=== PATIENT | female | born 1975 | race Caucasian/White ===

== ENCOUNTER 2017-09-20 01:59 | Emergency (ER) | payer OTHER ==
[~2017-09-20] VITALS: Ht 175.3 cm; Wt 81.3 kg
[~2017-09-20 01:59] MED LIST: FLEXERIL5 MG PO; IBUPROFEN800 MG PO; LYRICA100 MG; MOTRIN800 MG; MS CONTIN,ORAMO15 M1; MSIR30 MG; NAPROSYN500 MG PO; NEURONTIN300 MG PO; NORCO 5/3251 TABLET PO
[2017-09-20 02:19] LABS: HEMATOCRIT 37.9 % (36.0-46.0); MCH 31.9 PG (29.0-34.0); MCHC 34.3 G/DL (30.0-36.0); MCV 92.9 FL (83-99); MEAN PLAT.VOLUME 11.3 uM^3 (9.5-12.4); PLATELET COUNT 243 K/uL (156-360); RBC DIS.WIDTH-CV 12.4 % (11.8-14.6); RBC DIS.WIDTH-SD 42.5 % (39-53); RED BLOOD COUNT 4.08 M/uL (3.80-5.20); WHITE BLOOD COUNT 9.5 K/uL (4.1-10.2)
[2017-09-20 02:27] LABS: CHLORIDE 100 mEq/L (99-109); POTASSIUM 3.9 mEq/L (3.7-5.4); SODIUM 137 mEq/L (136-147)
[2017-09-20 02:29] LABS: GLUCOSE 128 mg/dL (70-99)
[2017-09-20 02:30] LABS: ANION GAP 11 MEQ/L (2-14)
[2017-09-20 02:31] LABS: TOTAL BILIRUBIN 0.4 mg/dL (0.0-1.0)
[2017-09-20 02:33] LABS: ALKALINE PHOSPHATASE 59 IU/L (3-129); GFR ESTIMATE (CALCULATED) > 59 mL/min/
[2017-09-20 02:34] LABS: UREA NITROGEN (BUN) 9 mg/dL (9-23)
[2017-09-20 02:55] LABS: QUANTITATIVE HCG < 4.0 MIU/ML
[2017-09-20 02:57] LABS: LIPASE 9 U/L (1.0-51.0)
[2017-09-20 03:19] LABS: ADD MIUA? NO; BILIRUBIN NEGATIVE; BLOOD NEGATIVE; COLOR YELLOW ((YELLOW)); GLUCOSE (STRIP) NEGATIVE; KETONES 5; LEUKOCYTES NEGATIVE; NITRITE NEGATIVE; PROTEIN (STRIP) NEGATIVE; SPECIFIC GRAVITY 1.012 (1.000-1.030); UCUL ADDED? NO; UROBILINOGEN 0.2 MG/DL (0.2-1.0)
[2017-09-20] MEDS ORDERED: PEPCID20 MG PO (05:57)
[2017-09-20 06:27] VITALS: BP 125/78
[2017-09-21] MEDS ORDERED: MORPHINE ER (16:35)
== END 2017-09-20 06:28 | disposition home or self-care (01) ==
LOC: EME 01:59
DX: K29.00 Acute gastritis without bleeding (principal); R10.11 Right upper quadrant pain; M79.7 Fibromyalgia; F17.200 Nicotine dependence, unspecified, uncomplicated
CPT/HCPCS: 74177; 76705; 80053; 81003; 83690; 84702; 85027; J2270; J2405; J7030; S0028

== ENCOUNTER 2017-09-21 12:29 | Inpatient (IN) | payer OTHER ==
[~2017-09-21] VITALS: Ht 175.3 cm; Wt 82.9 kg
[~2017-09-21 12:29] MED LIST changes: +PEPCID20 MG PO
[2017-09-21 13:00] LABS: HEMATOCRIT 37.9 % (36.0-46.0); MCH 31.8 PG (29.0-34.0); MCHC 33.5 G/DL (30.0-36.0); MCV 94.8 FL (83-99); MEAN PLAT.VOLUME 11.3 uM^3 (9.5-12.4); PLATELET COUNT 242 K/uL (156-360); RBC DIS.WIDTH-CV 12.5 % (11.8-14.6); RBC DIS.WIDTH-SD 43.6 % (39-53); WHITE BLOOD COUNT 8.6 K/uL (4.1-10.2)
[2017-09-21 13:08] LABS: CHLORIDE 103 mEq/L (99-109); POTASSIUM 3.7 mEq/L (3.7-5.4); SODIUM 136 mEq/L (136-147)
[2017-09-21 13:10] LABS: GLUCOSE 115 mg/dL (70-99)
[2017-09-21 13:11] LABS: ANION GAP 6 MEQ/L (2-14)
[2017-09-21 13:12] LABS: TOTAL BILIRUBIN 0.4 mg/dL (0.0-1.0)
[2017-09-21 13:14] LABS: ALKALINE PHOSPHATASE 55 IU/L (3-129); GFR ESTIMATE (CALCULATED) > 59 mL/min/
[2017-09-21 13:15] LABS: UREA NITROGEN (BUN) 7 mg/dL (9-23)
[2017-09-21 13:25] LABS: QUANTITATIVE HCG < 4.0 MIU/ML
[2017-09-21 14:16] LABS: LIPASE 10 U/L (1.0-51.0)
[2017-09-21 14:33] LABS: BILIRUBIN NEGATIVE; BLOOD NEGATIVE; COLOR YELLOW ((YELLOW)); GLUCOSE (STRIP) NEGATIVE; KETONES NEGATIVE; LEUKOCYTES NEGATIVE; NITRITE NEGATIVE; PROTEIN (STRIP) NEGATIVE; SPECIFIC GRAVITY 1.012 (1.000-1.030); UROBILINOGEN 0.2 MG/DL (0.2-1.0)
[2017-09-21 14:34] LABS: ADD MIUA? NO; UCUL ADDED? NO
[2017-09-21] MEDS ORDERED: MORPHINE ER (16:35)
[2017-09-21 20:22] VITALS: BP 127/66
[2017-09-21 23:35] VITALS: BP 94/58
[2017-09-22 03:48] VITALS: BP 114/74
[2017-09-22 16:16] VITALS: BP 121/67
[2017-09-22 17:40] VITALS: BP 117/69
[2017-09-22 19:58] VITALS: BP 166/87
[2017-09-22 23:13] VITALS: BP 110/65
[2017-09-23 06:02] LABS: ALKALINE PHOSPHATASE 46 IU/L (3-129); ANION GAP 7 MEQ/L (2-14); CHLORIDE 106 MEQ/L (99-109); GFR ESTIMATE (CALCULATED) > 59 mL/min/; GLUCOSE 96 mg/dL (70-99); POTASSIUM 3.5 MEQ/L (3.7-5.4); SAMPLE HEMOLYSIS CHECK 0; SAMPLE ICTERIC CHECK 0; SAMPLE LIPEMIA CHECK 0; SODIUM 139 MEQ/L (136-147); TOTAL BILIRUBIN 0.4 MG/DL (0.0-1.0); UREA NITROGEN (BUN) 11 mg/dL (9-23)
[2017-09-23 06:14] LABS: HEMATOCRIT 30.6 % (36.0-46.0); MCH 31.4 PG (29.0-34.0); MCHC 33.3 G/DL (30.0-36.0); MCV 94.2 FL (83-99); MEAN PLAT.VOLUME 11.4 uM^3 (9.5-12.4); PLATELET COUNT 190 K/uL (156-360); RBC DIS.WIDTH-SD 41.7 % (39-53); RED BLOOD COUNT 3.25 M/uL (3.80-5.20); WHITE BLOOD COUNT 5.7 K/uL (4.1-10.2)
[2017-09-23 08:00] VITALS: BP 110/73
[2017-09-23 16:37] VITALS: BP 119/77
[2017-09-23 20:00] VITALS: BP 128/72
[2017-09-23 23:58] VITALS: BP 139/61
[2017-09-24 03:00] VITALS: BP 155/72
[2017-09-24] MEDS ORDERED: PANTOPRAZOLE SO40 MG PO (11:34)
[2017-09-24] MEDS ORDERED: SUCRALFATE1 GM PO (11:34)
[2017-09-24 11:55] LABS: POC NON-PRINT COM 1 ND
== END 2017-09-24 12:22 | disposition home or self-care (01) | DRG 384 ==
LOC: EME 12:29 → EDOF 16:12 → ENRESERV 16:23 → 5WEST 20:12 → ENRESERV 09-23 07:48 → CANRESERV 09-23 07:48 → 5WEST 09-24 12:22
PROVIDERS: Hospitalist; Internal Medicine Gastroenterology
DX: K25.9 Gastric ulcer, unspecified as acute or chronic, without hemorrhage or perforation (principal); K31.1 Adult hypertrophic pyloric stenosis; K44.9 Diaphragmatic hernia without obstruction or gangrene; M79.7 Fibromyalgia; K29.70 Gastritis, unspecified, without bleeding; F17.200 Nicotine dependence, unspecified, uncomplicated; Z79.899 Other long term (current) drug therapy; Z80.9 Family history of malignant neoplasm, unspecified
CPT/HCPCS: 74000; 74177; 76705; 80053; 81003; 82272; 83605; 83690; 84702; 85027; 87177; 87329; 88305; 88342 TC; 90686; 99281; 99285; C9113; G0378; J1170; J1644; J1885; J2250; J2270; J2405; J2765; J3010; J7030; S0028

== ENCOUNTER → 2017-11-21 | Outpatient (CLI) | payer OTHER ==
[~2017-11-21] VITALS: Ht 175.3 cm; Wt 77.1 kg
[~2017-11-21] MED LIST changes: +MORPHINE ER; +PANTOPRAZOLE SO40 MG PO; +SUCRALFATE1 GM PO
== END | disposition home or self-care (01) ==
LOC: AMB 08:00
PROC: 0DB68ZX Excision of Stomach, Via Natural or Artificial Opening Endoscopic, Diagnostic (ICD-10-PCS; principal; 2017-11-21)
DX: K29.80 Duodenitis without bleeding (principal); R10.13 Epigastric pain; Z87.11 Personal history of peptic ulcer disease; Z87.891 Personal history of nicotine dependence
CPT/HCPCS: 88305; 88342 TC